=== PATIENT | male | born 1990 | race Caucasian/White ===

== ENCOUNTER 2019-05-28 20:37 | Observation (INO) | payer OTHER, SELFPAY ==
[2019-05-28 20:38] VITALS: BP 137/81; PULSE 80; RESP 16; TEMP 37.1; O2SAT 98; BMI 31.7
--- NOTE | 2019-05-28 21:03 | CT_ITS ---
HISTORY: RT GROIN LUMP AND PAIN,RLQ PAIN SINCE THURSDAY TECHNIQUE: Helically acquired images were obtained of the abdomen and pelvis following the intravenous administration of 100ML ml of Isovue 370 Iodinated contrast. 2D reformats. Oral contrast was administered. A radiation dose optimization technique was used for this scan. COMPARISON: None FINDINGS: # of images incl. paperwork: 414 LUNG BASES: Clear. CT abdomen: Minimal wedging to the lower thoracic and L1 vertebral bodies with a mild kyphosis. Trace anterior subluxation of L5 on S1 with chronic spondylolisthesis and spondylolysis at L5-S1. The gallbladder remains. Periportal edema is present. The spleen, pancreas, and adrenal glands, are normal. Hypodense area within the anterior mid right kidney statistically represents a benign cyst. No nephrolithiasis or hydronephrosis. No ureteric stones. The aorta is normal. CT pelvis: No ascites is present. The prostate gland is not enlarged. The appendix is minimally thickened at 8 mm. Series 2 image 83. Coronal series 601, image 60 There is trace surrounding induration to the fat with slight thickening of the parietal peritoneum The bladder is normal. Bowel-gas pattern is normal. CT/Abdomen/Pelvis WITH Contrast IMPRESSION: Some inguinal lymph nodes are present. The largest right inguinal lymph node, directly anterior to the right common iliac artery and vein measures 2.1 x 1.5 cm. The etiology for this adenopathy is not perceived. The origin of the appendix is normal. ADDENDUM thickened slightly to 8 mm as it sits directly anterior to the right psoas muscle behind and inferior to the cecum. There is minimal induration of the surrounding fat. There is slight thickening of the parietal peritoneum within the paracolic gutter dorsal to the appendix. This may be indicative of early/mild acute appendicitis Periportal edema. This of unknown etiology, but can be seen in healthy patients after rapid IV hydration. Individualized dose optimization techniques were used for this CT. at 1260 Reported and signed by: Yonatan Emanuel MD N.B. : The above information has been verbally conveyed by Yonatan Emanuel MD to Dr. Winnie MD, on 05/28/2019 23:33:35 (ET). Electronically Signed: Yonatan Emanuel MD at 23:28 EST Tel , Service support ,
--- NOTE | 2019-05-28 21:09 | ED.DCSUM_ITS ---
- ER Visit Summary Date of Service: 05/28/19 Chief Complaint: [Lump in right lower abdomen] History of Present Illness: The patient is a 29 M presents to the emergency department with a lump in his right lower abdomen that is had for several days. Patient describes discomfort over and a fullness to his lower abdomen. Patient yesterday also had an episode of some discomfort to his right testicle was quite severe for a short time but seems to have improved now. He denies any trauma to his testicle. He denies urinary symptoms. He also had some mild discomfort into his right back. Patient's had no dysuria. He denies any fevers or vomiting. He denies any blood in stool or black tarry stool. Concerned that he may have a hernia.] Physical Examination: [HEENT-PERRLA, EOMI. Cranial nerves II through XII grossly intact. TMs clear. Mucous membranes moist. No adenopathy. Cardiovascular-regular rate and rhythm without murmur or ectopy Lungs-clear to auscultation, chest wall stable without crepitus or subcu emphysema Abdomen-normoactive bowel sounds, soft. Patient has tenderness palpation over the right inguinal region and lower quadrant with a small 3 cm soft tissue mass noted in this area and slightly tender to palpation. It is more noticeable when patient standing. There is no discoloration to the skin. exam-patient has some mild tenderness over the right epididymis with some mild fullness noted compared to the opposite side. No inguinal hernias palpated in the inguinal canal. Patient has normal lie of both testicles and normal cremasteric reflex. Extremities-intact ?4, normal range of motion, normal pulses, atraumatic] Test Results: [] Emergency Department Course and Treatment: [] Treatment Plan: [] Disposition: [] Impression: [] This note was generated with Tripda dictation software. It may contain incorrect words, spelling, and punctuation that were not noted in review of the chart prior to signing <Ina Guzmna - Last Filed: 05/28/19 21:09> - ER Visit Summary Date of Service: 05/28/19 Test Results: BC normal. BMP unremarkable. Urinalysis and lactate normal. CT showed possible appendicitis. There is right inguinal lymphadenopathy. Emergency Department Course and Treatment: Patient was signed out to me to check labs, urine, and imaging. There was no evidence of hernia or pathology. Radiology called and was concern for early appendicitis. His labs and vitals were unremarkable. On reevaluation, he continues to have right lower quadrant pain. I advised him to remain n.p.o. I contacted Dr. Rios who will evaluate the patient. I started Zosyn while awaiting evaluation. Dr. Rios initially did not believe that his exam, imaging, and evaluation were consistent with appendicitis. The plan was going to be to discharge him on antibiotics to cover epididymitis and have him follow-up with Dr. Rios for his lymphadenopathy and with urology for possible epididymitis/orchitis. Dr. iRos reviewed the images again and decided that we would observe the patient overnight for a reevaluation in the morning. Treatment Plan: As above Disposition: Admission Impression: 1. Right lower quadrant pain, possible appendicitis This note was generated with Tripda dictation software. It may contain incorrect words, spelling, and punctuation that were not noted in review of the chart janet or to signing <Gregg Zhou - Last Filed: 05/29/19 02:08> ED Disposition <Ina Guzman - Last Filed: 05/28/19 21:09> <Gregg Zhou - Last Filed: 05/29/19 02:08> - Plan for ED Patient: Disposition: Acute Care Hospital [facility]
[2019-05-28] MEDS: 0.9% Normal Saline 1,000 ML 150 ML IV (21:20)
[2019-05-28 21:32] LABS: Absolute Lymphocyte Count 1.96 X10^3/uL (0.83-4.51); Absolute Neutrophil Count 5.8 X10^3/uL (2.0-7.7); Basophil# 0.05 X10^3/uL; Basophil% 0.6 % (0-1); Eosinophil# 0.05 X10^3/uL; Eosinophils% 0.6 % (0-5); Hematocrit 40.1 % (40-54); Hemoglobin 13.6 g/dL (13.0-16.5); Lymphocyte # 1.96 X10^3/ul (4.0); Lymphocyte % 22.7 % (19-41); Mean Corp Hgb Conc 33.9 g/dL (32-36); Mean Corpuscular Hgb 29.1 pg (27.0-32.0); Mean Corpuscular Volume 85.7 fL (80-94); Mean Platelet Vol. 9.5 fl (6.2-12.0); Monocyte# 0.79 X10^3/uL; Monocyte% 9.2 % (0-10); NRBC Flagged by Analyzer 0 % (0-5); Neutrophil # 5.76 X10^3/uL (2.7-7.7); Neutrophil % 66.7 % (47-70); Platelet Count 211 K/mm3 (150-450); RBC Distribution Width CV 12.1 % (11.6-14.6); RBC Distribution Width SD 37.6 fl (35.1-43.9); Red Blood Count 4.68 M/mm3 (4.6-6.2); White Blood Count 8.6 K/mm3 (4.4-11.0)
[2019-05-28 21:57] LABS: Anion Gap 7 (5-15); BUN 15 mg/dL (7-18); BUN/Creat Ratio 17.1 RATIO (10-20); Calcium,Total 9.1 mg/dL (8.5-10.1); Chloride 109 mmol/L (98-107); Creatinine, Serum 0.88 mg/dL (0.70-1.30); EST Glomerular Filtration Rate 108 mL/min (>60); Est Glom Filt Rate - Afr Amer 131 mL/min (>60); Estimated Creatinine Clearance 122.74 ml/min; Glucose 96 mg/dL (74-106); Potassium 3.6 mmol/L (3.5-5.1); Sodium Level 142 mmol/L (136-145)
[2019-05-28 22:03] LABS: Bacteria 0 SEEN /hpf (None Seen); Mucous, Urine 0 SEEN /hpf (<or=2+); Squamous Epithelial Cells - UA 0 SEEN /hpf (0-5); White Blood Cells 0 SEEN /hpf (0-5)
[2019-05-28 22:04] LABS: Color, Urine Yellow (Yellow); Glucose, Dipstick Normal (Normal); Ketone-Dipstick Negative (Negative); Leukocyte Esterase-Dipstick Negative /ul (Negative); Nitrite-Dipstick Negative (Negative); Occult Blood-Urine Negative /ul (Negative); Protein-Dipstick Negative (Negative); Specific Gravity, Urine 1.025 (1.002-1.030); Urine Bilirubin Dipstick Negative (Negative); Urine Clarity Sl. Cloudy (Clear); Urine Urobilinogen Normal (Normal)
[2019-05-28 22:17] LABS: Red Blood Cells-Urine 0 SEEN /hpf (0-5)
[2019-05-28 22:43] LABS: Lactic Acid 1.1 mmol/L (0.4-2.0)
[2019-05-28 23:13] VITALS: BP 129/80; PULSE 71; RESP 14; O2SAT 97
--- NOTE | 2019-05-28 23:14 | ED.RN ---
pt with increased discomfort in lower abd area, but states I don't want anything for pain. Dr Guzman aware.
[2019-05-29] VITALS (16 sets, daily range): BP systolic 112–147; BP diastolic 66–82; PULSE 53–84; RESP 14–18; TEMP 36.6–37; O2SAT 94–100; BMI 32.4
--- NOTE | 2019-05-29 00:20 | PCM.CONS.GEN ---
Problem List (1) Right lower quadrant abdominal pain Status: Acute (2) Enlarged lymph node Status: Acute Reason for Consult Date of Consultation: 05/29/19 History of Present Illness: The patient is a 29 M presents to the emergency department with a lump in his right lower abdomen that is had for several days. Patient describes discomfort over and a fullness to his lower abdomen. Patient yesterday also had an episode of some discomfort to his right testicle was quite severe for a short time but seems to have improved now. He denies any trauma to his testicle. He denies urinary symptoms. He also had some mild discomfort into his right back. Patient's had no dysuria. He denies any fevers or vomiting. He denies any blood in stool or black tarry stool. Concerned that he may have a hernia. His work-up in the emergency department included a normal white count and electrolytes. As well as a normal urinalysis. His CAT scan read as: IMPRESSION: Some inguinal lymph nodes are present. The largest right inguinal lymph node, directly anterior to the right common iliac artery and vein measures 2.1 x 1.5 cm. The etiology for this adenopathy is not perceived. The origin of the appendix is normal. ADDENDUM thickened slightly to 8 mm as it sits directly anterior to the right psoas muscle behind and inferior to the cecum. There is minimal induration of the surrounding fat. There is slight thickening of the parietal peritoneum within the paracolic gutter dorsal to the appendix. This may be indicative of early/mild acute appendicitis. He is not complaining of any peritoneal irritation. He states it feels as if he is done a lot of sit ups. 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 Past Medical History Allergies No Known Allergies Allergy (Verified 05/28/19 20:40) Home Medications: Ambulatory Orders Medication Instructions Recorded Loratadine [Claritin] 1 tablet PO DAILY PRN PRN 01/04/16 Smoking Status: Never smoker - *Family History Maternal History Items: No pertinent history Review of Systems Constitutional: Denies: Chills, Fever, Weight Change Cardiovascular: Denies: Chest Pain, Chest Pressure, Chest Tightness, Palpitations Respiratory: Denies: Cough, Hemoptysis, Shortness of breath at rest, Shortness of breath upon exertion, Wheezing Gastrointestinal: Reports: Abdominal Pain, Diarrhea. Denies: Nausea, Vomiting Genitourinary: Denies: Dysuria, Frequency, Hematuria, Urgency Musculoskeletal: Reports: Muscle pain Patient Problems: Active and Suspected Problems Right lower quadrant abdominal pain (Acute) Enlarged lymph node (Acute) - Physical Exam Vitals/I&O's: Vital Signs Temp Pulse Resp BP Pulse Ox 98.8 F 71 14 129/80 H 97 05/28/19 20:38 05/28/19 23:13 05/28/19 23:13 05/28/19 23:13 05/28/19 23:13 Oxygen Delivery Method Room Air Weight: 215 lb Body Mass Index (BMI) 31.7 General: Alert, Oriented x3 Lungs: Clear to auscultation Cardiovascular: Regular rate, Regular Rhythm, No murmurs Abdomen: Bowel Sounds Present, Soft - Has no focal tenderness in the right lower quadrant. He has no focal tenderness in the groin. The lymph node is easily palpable in the right groin area. The patient gets in and out of the bed without discomfort he can stand on his tippy toes and fall to his heels abruptly with no peritoneal irritation. He has no discomfort when he is coughing. Laboratory Results 05/28/19 21:20: WBC 8.6, RBC 4.68, Hgb 13.6, Hct 40.1, MCV 85.7, MCH 29.1, MCHC 33.9, RDW Std Deviation 37.6, RDW Coeff of Unruly 12.1, Plt Count 211, MPV 9.5, Immature Gran % (Auto) 0.200, Neut % (Auto) 66.7, Lymph % (Auto) 22.7, [place] % (Auto) 9.2, Eos % (Auto) 0.6, Baso % (Auto) 0.6, Absolute Neuts (auto) 5.8, Absolute Lymphs (auto) 1.96, Nucleated RBC % 0 05/28/19 21:20: Sodium 142, Potassium 3.6, Chloride 109 H, Carbon Dioxide 26.0, Anion Gap 7, BUN 15, Creatinine 0.88, Estim Creat Clear Calc 122.74, Est GFR (MDRD) Af Amer 131, Est GFR (MDRD) Non-Af 108, BUN/Creatinine Ratio 17.1, Glucose 96, Calcium 9.1 05/28/19 21:55: Urine Color Yellow, Urine Clarity Sl. Cloudy, Urine pH 6.0, Ur Specific [place] 1.025, Urine Protein Negative, Urine Glucose (UA) Normal, Urine Ketones Negative, Urine Occult Blood Negative, Urine Nitrite Negative, Urine Bilirubin Negative, Urine Urobilinogen Normal, Ur Leukocyte Esterase Negative, Urine RBC 0 SEEN, Urine WBC 0 SEEN, Ur Squamous Epith Cells 0 SEEN, Urine Bacteria 0 SEEN, Urine Mucus 0 SEEN 05/28/19 22:05: Lactic Acid 1.1 Current Medications Sodium Chloride () 1,000 mls @ 150 mls/hr IV .[id number] [facility] Last Admin: 05/28/19 21:20 Dose: 150 mls/hr Documented by: Assessment/Plan All Active Problems Right lower quadrant abdominal pain (Acute) Enlarged lymph node (Acute) Although the CAT scan raises a question of acute appendicitis here his physical exam is just completely out of proportion to that. Not showing any peritoneal irritation and/or specific pain in the right lower quadrant my suspicion is low. However I think it would be prudent to admit him to the hospital for observation and see how he is feeling between 6 and 8 hours from now.
[2019-05-29] MEDS: Dextrose 5%-Lactated Ringers 1,000 ML 100 ML IV (01:49)
[2019-05-29 06:44] LABS: Hematocrit 36.6 % (40-54); Hemoglobin 12.5 g/dL (13.0-16.5); Mean Corp Hgb Conc 34.2 g/dL (32-36); Mean Corpuscular Hgb 29.1 pg (27.0-32.0); Mean Corpuscular Volume 85.3 fL (80-94); Mean Platelet Vol. 9.8 fl (6.2-12.0); Platelet Count 176 K/mm3 (150-450); RBC Distribution Width CV 12.3 % (11.6-14.6); RBC Distribution Width SD 37.9 fl (35.1-43.9); Red Blood Count 4.29 M/mm3 (4.6-6.2); White Blood Count 5.2 K/mm3 (4.4-11.0)
--- NOTE | 2019-05-29 10:07 | PN.SURG_ITS ---
Patient Problems: Active and Suspected Problems Right lower quadrant abdominal pain (Acute) Enlarged lymph node (Acute) Subjective: Patient is not feeling any better today than he did yesterday. He has had some loose stools last night. Objective: Abdomen is soft he does have some most of his tenderness in the right lower quadrant. - Physical Exam Vitals/I&O's: Vital Signs Temp Pulse Resp BP Pulse Ox 97.8 F 60 18 126/72 H 98 05/29/19 06:20 05/29/19 06:20 05/29/19 06:20 05/29/19 06:20 05/29/19 06:20 Oxygen Delivery Method Room Air Weight: 219 lb 9.286 oz Body Mass Index (BMI) 32.4 Intake and Output for Last 24 Hours 05/27/19 05/28/19 05/29/19 23:59 23:59 23:59 Intake Total 662.5 / 662.5 Balance 662.5 / 662.5 Laboratory Results 05/28/19 21:20: WBC 8.6, RBC 4.68, Hgb 13.6, Hct 40.1, MCV 85.7, MCH 29.1, MCHC 33.9, RDW Std Deviation 37.6, RDW Coeff of Unruly 12.1, Plt Count 211, MPV 9.5, Immature Gran % (Auto) 0.200, Neut % (Auto) 66.7, Lymph % (Auto) 22.7, [place] % (Auto) 9.2, Eos % (Auto) 0.6, Baso % (Auto) 0.6, Absolute Neuts (auto) 5.8, Absolute Lymphs (auto) 1.96, Nucleated RBC % 0 05/28/19 21:20: Sodium 142, Potassium 3.6, Chloride 109 H, Carbon Dioxide 26.0, Anion Gap 7, BUN 15, Creatinine 0.88, Estim Creat Clear Calc 122.74, Est GFR (MDRD) Af Amer 131, Est GFR (MDRD) Non-Af 108, BUN/Creatinine Ratio 17.1, Glucose 96, Calcium 9.1 05/28/19 21:55: Urine Color Yellow, Urine Clarity Sl. Cloudy, Urine pH 6.0, Ur Specific [place] 1.025, Urine Protein Negative, Urine Glucose (UA) Normal, Urine Ketones Negative, Urine Occult Blood Negative, Urine Nitrite Negative, Urine Bilirubin Negative, Urine Urobilinogen Normal, Ur Leukocyte Esterase Negative, Urine RBC 0 SEEN, Urine WBC 0 SEEN, Ur Squamous Epith Cells 0 SEEN, Urine Ba cteria 0 SEEN, Urine Mucus 0 SEEN 05/28/19 22:05: Lactic Acid 1.1 05/29/19 06:19: WBC 5.2, RBC 4.29 L, Hgb 12.5 L, Hct 36.6 L, MCV 85.3, MCH 29.1, MCHC 34.2, RDW Std Deviation 37.9, RDW Coeff of Unruly 12.3, Plt Count 176, MPV 9.8 Current Medications Dextrose/Lactated Ringer's () 1,000 mls @ 100 mls/hr IV .Q10H BISHOP Last Admin: 05/29/19 01:49 Dose: 100 mls/hr Documented by: Piperacillin Sod/Tazobactam (Sod 4.5 gm/ Sodium Chloride) 100 mls @ 200 mls/hr IV X1 ONE Stop: 05/29/19 10:19 Sodium Chloride () 250 mls @ 15 mls/hr IV .[id number] PRN PRN Reason: Saline Flush Ondansetron HCl (Zofran) 4 mg IV Q8H PRN PRN PRN Reason: Nausea Sodium Chloride () 10 - 40 ml IV UD PRN PRN Reason: SALINE FLUSH Medical Necessity - Tobacco Use Smoking Status: Never smoker Assessment/Plan All Active Problems Right lower quadrant abdominal pain (Acute) Enlarged lymph node (Acute) Plan is to perform a laparoscopic appendectomy. Risk benefits to the procedure were reviewed in great detail with he and his and they are willing to proceed.
--- NOTE | 2019-05-29 10:10 | NURSING ---
skin prep completed to patients abdomen and groins. clean gown and linens placed on. Pt signed consent. pt being taken to OR at this time via bed, his is with him at the bedside. report called to Lisa in OR.
--- NOTE | 2019-05-29 10:30 | APP_PTH ---
PATIENT: MARY PALACIOS LOC: [facility] U#:[id number] AGE/SX: 29/M ROOM: [facility] RE05/29/[address]: Dr. Gregg Rios MD : 1990 BED: 1 DIS: 05/30/2019 SPEC #: [id number] RECD: 05/30/19 07:45 STATUS: JULIUS REAlec #: [id number] MIMI: 05/29/19 10:[address]: Gregg Rios DEPT: SURGICAL PATHOLOGY RECD BY: Ines Gonsales ENTERED: 05/30/19 09:57 SP TYPE: APPENDIX OTHR DR: Dr. Destiney Javier MD Tissues: Appendix, NOS Procedures: Surgery Specimen Level III HEADER OPERATION: Laparoscopic, appendectomy PRE-OP DIAGNOSIS: Right lower quadrant pain, acute appendicitis TISSUE SUBMITTED: Appendix MICROSCOPIC DIAGNOSIS Appendix, appendectomy: Early acute appendicitis. OG:oksana 11/19/19 MICROSCOPIC DESCRIPTION Slides are reviewed. GROSS DESCRIPTION Received is one container labeled with the patient's name and designated appendix. The specimen consists of a J-shaped appendix measuring 9 cm in length and up to 0.8 cm in diameter. The attached periappendiceal adipose tissue measures up to 2.5 cm in width. The serosa is congested. No obvious perforation is identified. The lumen does not contain any fecalith. The entire appendix is submitted in four cassettes. Cassette 1 contains the tip and proximal portion. / OG:oksana 05/30/19 TC:2 CPT: 70427
--- NOTE | 2019-05-29 10:46 | PCM.OPRPT ---
Problem List (1) Right lower quadrant abdominal pain Status: Acute (2) Acute appendicitis Status: Acute Qualifiers: Acute appendicitis type: with localized peritonitis Appendicitis gangrene presence: without gangrene Appendicitis perforation presence: without perforation Appendicitis abscess presence: without abscess Qualified Code(s): K35.30 - Acute appendicitis with localized peritonitis, without perforation or gangrene Report of Operation Date of Procedure: 05/29/19 Pre-Operative Diagnosis: Right lower quadrant abdominal pain. Acute appendicitis Post-Operative Diagnosis: Same Surgery/Procedure Performed:: Laparoscopic appendectomy Type of Anesthesia:: General Anesthesiologist: Rakesh Weeks Specimen's removed: Appendix Estimated Blood Loss (mL): < 25 cc Fluids Replaced: 1 l lr Description of Procedure: Patient was brought into the operating room. Placed in the supine position. Under excellent general endotracheal ovation the abdomen was sterilely prepped and draped in usual fashion. Local was injected infra umbilically. Dissection was carried down to the fascia. Fascia was grasped with a [place]. Varies needle was placed inside the abdomen. Abdomen was insufflated to 15 torr. A 10/12 trocar was placed. Suprapubic #5 trochars placed in the left lower quadrant #5 trocar was placed over these under direct visualization without injury to underlying structures patient was noted to have a thickened appendix in the middle of the appendix with fat creeping around I came down on the mesoappendix with the Enseal to the base the appendix and transected the base of the appendix with a 45 linear cutter. Placed a specimen specimen bag delivered through the umbilical port without difficulty. I used touch cautery on the appendiceal base for good hemostasis. I inspected the pelvis no fluid was identified I looked at the gallbladder it appeared to be normal as well. I placed Tony in the base of the mesoappendix and base of the appendix area. I had good hemostasis. Around the small bowel did not identify Meckel's diverticulum. Trochars were removed under direct visualization good hemostasis was noted. Fascia the umbilical port was closed with a [id number] stitch of 0 Vicryl skin incisions were closed with some particular stitches of 4-0 Monocryl Steri-Strips applied sterile dressings were applied and the patient tolerated the procedure well. - Admit VTE Documentation VTE Present on Admission: No VTE Mechan Device Prophylaxis: SCD's VTE Pharm Prophylaxis ordered?: No Reason prophylaxis not ordered:: Treatment Not Indicated
[2019-05-29] MEDS: Bupivacaine Mpf 0.5% 30 ML VIAL (11:14)
[2019-05-29] MEDS: Lactated Ringers 1,000 ML 100 ML IV ×2 (11:31→19:18)
[2019-05-29] MEDS: Ibuprofen 400 MG Tablet 800 MG PO ×2 (13:28→21:03)
[2019-05-29] MEDS: oxyCODONE 5 MG Tablet 10 MG PO (22:48)
[2019-05-30 00:25] VITALS: BP 118/70; PULSE 76; RESP 16; TEMP 36.9; O2SAT 94
[2019-05-30 04:25] VITALS: BP 116/64; PULSE 63; RESP 18; TEMP 36.8; O2SAT 96
[2019-05-30] MEDS: Ibuprofen 400 MG Tablet 800 MG PO (05:35)
[2019-05-30] MEDS: Lactated Ringers 1,000 ML 100 ML IV (05:35)
[2019-05-30 08:45] VITALS: BP 107/69; PULSE 60; RESP 16; TEMP 36.6; O2SAT 100
[2019-05-30] MEDS: oxyCODONE 5 MG Tablet 10 MG PO (08:55)
--- NOTE | 2019-05-30 09:47 | DS.PCM_ITS ---
Discharge Date and Diagnosis - Problem List Patient Problems: Active and Suspected Problems Right lower quadrant abdominal pain (Acute) Enlarged lymph node (Acute) Acute appendicitis (Acute) Date of Admission: 05/28/19 Date of Discharge: 05/30/19 - Primary Discharge Diagnosis Active and Suspected Problems Right lower quadrant abdominal pain (Acute) Enlarged lymph node (Acute) Acute appendicitis (Acute) Hospital Course and Treatment Operations: appendectomy Procedures: None Summary of Care Provided: The patient is a 29 year old M who presented with right lower quadrant pain x several days. CT scan of the ab/pel demonstrated early acute appendicitis. Dr. Rios performed a laparoscopic appendectomy on 05/29/19. Patient tolerated the procedure well. Upon discharge, patient is tolerating a regular diet. He denies nausea, vomiting. He is urinating well. He notes minimal amount of abdominal discomfort. Patient Problems: Active and Suspected Problems Right lower quadrant abdominal pain (Acute) Enlarged lymph node (Acute) Acute appendicitis (Acute) - Physical Exam Vitals/I&O's: Vital Signs Temp Pulse Resp BP Pulse Ox 97.9 F 60 16 107/69 100 05/30/19 08:45 05/30/19 08:45 05/30/19 08:45 05/30/19 08:45 05/30/19 08:45 Oxygen Flow Rate (L/min) 2 Oxygen Delivery Method Room Air Weight: 219 lb 9.286 oz Body Mass Index (BMI) 32.4 Intake and Output for Last 24 Hours 05/28/19 05/29/19 05/30/19 23:59 23:59 23:59 Intake Total 3720.83 / 3720.83 1018.33 / 1018.33 Balance 3720.83 / 3720.83 1018.33 / 1018.33 General: Alert, Oriented x3, Cooperative Abdomen: Bowel Sounds Present, Soft, Distended - slightly, - - Incisions c/d/i. No erythema or infection noted. Current Medications Hydromorphone HCl (Dilaudid Inj) 1 - 2 mg IV Q2H PRN PRN PRN Reason: Pain Score 6-10/10 Sodium Chloride () 250 mls @ 15 mls/hr IV .[id number] PRN PRN Reason: Saline Flush Lactated Ringer's () 1,000 mls @ 100 mls/hr IV .Q10H BISHOP Last Admin: 05/30/19 05:35 Dose: 100 mls/hr Documented by: Ibuprofen (Motrin) 800 mg PO Q8 BISHOP Last Admin: 05/30/19 05:35 Dose: 800 mg Documented by: Ondansetron HCl (Zofran) 4 mg IV Q8H PRN PRN PRN Reason: Nausea Oxycodone HCl (Oxyir) 10 mg PO Q4H PRN PRN PRN Reason: Pain Score 6-10/10 Last Admin: 05/30/19 08:55 Dose: 10 mg Documented by: Sodium Chloride () 10 - 40 ml IV UD PRN PRN Reason: SALINE FLUSH Home Medications: Medications to take at Discharge Loratadine [Claritin] 1 tablet PO DAILY PRN PRN 01/04/16 Oxycodone [Oxyir] 5 mg PO Q6H PRN PRN 3 Days #8 tablet 05/30/19 Following Prescrptions Were Given to Patient: Oxycodone [Oxyir] 5 mg PO Q6H PRN PRN 3 Days #8 tablet PRN Reason: Pain Score 6-10/10 Transmission Status: Sent to [facility] Primary Care Physician: Destiney Javier MD [Primary Care Provider] - Disposition: Home Minutes spent on discharge:: 20 Patient Condition:: Stable Medical Necessity - Tobacco Use Smoking Status: Never smoker Meaningful Use Info Meaningful Use Diagnoses (Choose all that apply): None applicable Code Visit Inpatient E&M: 01020 Disch Hosp - No charge
--- NOTE | 2019-05-30 09:56 | DCINST_ITS ---
Discharge Diet: Light diet - advance as tolerated Discharge Activity: May Not Drive - for 3-5 days or while taking narcotic pain meds. May shower in (days): 1 Call your doctor if your incision/area has: Continuous Slow Oozing, Sudden Increased Bleeding, Increased Pain/ Swelling, Increased Redness, Foul Smelling Discharge Call your doctor if you observe: Fever of 101 or Higher Suture Line Care: Avoid Pulling/Pushing, Avoid Pinching/Bending Cleanse incision/area with: Soap & Water Additional Dressing/Incision Instructions:: Keep dressing clean and dry. Change or remove dressing in 2 days. Leave steri strips for 1 week. May protect with a gauze bandaid. Medications to take at Discharge Loratadine [Claritin] 1 tablet PO DAILY PRN PRN 01/04/16 Oxycodone [Oxyir] 5 mg PO Q6H PRN PRN 3 Days #8 tablet 05/30/19 Allergies/Adverse Reactions: Allergies No Known Allergies Allergy (Verified 05/28/19 20:40) The following prescriptions were given: Oxycodone [Oxyir] 5 mg PO Q6H PRN PRN 3 Days #8 tablet PRN Reason: Pain Score 6-10/10 Transmission Status: Sent to [facility] Primary Care Physician: Destiney Javier MD [Primary Care Provider] - Test Results: Test results from this visit will be discussed in further detail at your follow- up appointment, if applicable. Please Follow Up With: Herminia Mandujano PA-C - [phone] When: 7-10 days Proposed Discharge Date: 05/30/19
--- NOTE | 2019-05-30 10:24 | PHA.DC.MC ---
Pharmacy Service has performed discharge medication reconciliation and counseling for this patient. 1. OXYCODONE 5MG PO Q6H PRN PAIN 6-10 X 3 DAYS The patient's discharge medication list was reviewed for discrepancies and discrepancies were resolved. Home Medications Loratadine [Claritin] 1 tablet PO DAILY PRN PRN 01/04/16 Oxycodone [Oxyir] 5 mg PO Q6H PRN PRN 3 Days #8 tab 05/30/19 The patient was counseled on the following discharge medications and changes in medications for homegoing were reviewed. The Reason for Use, instructions for use, and potential side effects were reviewed for all new medications. The patient's questions regarding all of their medications were answered. The patient was able to verbally demonstrate an understanding of their discharge medications.
== END 2019-05-30 09:57 | disposition home or self-care (01) ==
LOC: ED 21:17 → PCU 05-29 00:35
PROVIDERS: Admitting Provider Surgery; Emergency Provider Emergency Medicine; Family Provider Family Medicine; PCP Family Medicine; Visit Provider Surgery
PROC: 0DTJ4ZZ Resection of Appendix, Percutaneous Endoscopic Approach (ICD-10-PCS; CPT 44970; principal; 2019-05-29 10:30)
DX: K35.80 Unspecified acute appendicitis (principal); R59.9 Enlarged lymph nodes, unspecified
CPT/HCPCS: 00840; 44970; 74177; 80048; 81001; 83605; 85025; 85027; 88304; 96361; 96365; 97802; 99218; 99251; 99285; J7030; J7120; Q9967; A4216; C1760; G0378; G0463; J2405

== ENCOUNTER → 2019-06-13 16:09 | Outpatient (CLI) | payer OTHER, SELFPAY ==
[2019-05-29 01:08] VITALS: BMI 32.4
--- NOTE | 2019-06-13 16:10 | US_ITS ---
STUDY: SCROTUM ULTRASOUND REASON FOR EXAM: Male, 29 years old. Testicular pain TECHNIQUE: Ultrasound evaluation of the scrotum was performed with color Doppler and static kapoor-scale imaging. COMPARISON: None. FINDINGS: RIGHT TESTICLE INTRATESTICULAR: There is a normal size of the right testicle. The right testicle measures 4.9 x 3.7 x 2.5 cm. There is a homogenous echotexture. There is normal arterial and normal venous vascularity. There is no demonstrated right testicular mass or cyst. EXTRATESTICULAR: The epididymis is normal in size. The epididymis head measures 1.1 cm. There is normal vascularity of the epididymis. There is no demonstrated epididymal cystic structure. There is small complex hydrocele with septations. There is no demonstrated varicocele. There is no demonstrated extratesticular mass or cyst. LEFT TESTICLE INTRATESTICULAR: There is a normal size of the left testicle. The left testicle measures 4.6 x 3.4 x 2.4 cm. There is a homogenous echotexture. There is normal arterial and normal venous vascularity. There is no demonstrated left testicular mass or cyst. EXTRATESTICULAR: The epididymis is normal in size. The epididymis head measures 1.1 cm. There is normal vascularity of the epididymis. There is a well-defined cystic structure within the epididymis, without internal echoes, consistent with an epididymal cyst. There is a small hydrocele. There is no demonstrated varicocele. There is no demonstrated extratesticular mass or cyst. US/Testicular with Arterial Flow IMPRESSION: Bilateral hydroceles, small. Right-sided hydrocele has thin septations. Otherwise, unremarkable exam Electronically Signed: Henry Archibald DO at 17:10 EST Tel , Service support ,
== END ==
PROVIDERS: Family Provider Family Medicine; PCP Family Medicine; Referring Provider Physician Assistant; Visit Provider Physician Assistant
DX: N50.811 Right testicular pain (principal)
CPT/HCPCS: 76870; 93976

== ENCOUNTER 2019-06-24 20:15 | Emergency (ER) | payer OTHER, SELFPAY ==
[2019-05-29 01:08] VITALS: BMI 32.4
[2019-06-24 20:16] VITALS: BP 144/88; PULSE 74; RESP 15; TEMP 37; O2SAT 97; BMI 30.1
--- NOTE | 2019-06-24 20:26 | EKG12_ITS ---
Test Reason : DYSRHYTHMIA Blood Pressure : / mmHG Vent. Rate : 062 BPM Atrial Rate : 062 BPM P-R Int : 162 ms QRS Dur : 098 ms QT Int : 410 ms P-R-T Axes : 018 059 040 degrees QTc Int : 416 ms Normal sinus rhythm Normal ECG Confirmed by SERJIO CEDILLO ([id number]), commercial production editor TASHI TORRES ([id number]) on 06/29/2019 1:04:02 PM Referred By: Confirmed By:SERJIO CEDILLO
--- NOTE | 2019-06-24 20:26 | CT_ITS ---
HISTORY: SOB/epigastric pain. Appendectomy 4 weeks ago. TECHNIQUE: Helically acquired images were obtained of the abdomen and pelvis following the intravenous administration of 100 ML of Isovue-370 intravenous contrast Iodinated contrast. 2D reformats. Gastrografin oral contrast was administered. A radiation dose optimization technique was used for this scan. COMPARISON: CT scan of the abdomen and pelvis from May 28, 2019 FINDINGS: # of images incl. paperwork: 408 LUNG BASES: Clear. CT abdomen: T11 and T12 and to a lesser degree L1 demonstrate some mild wedging at the apex of a thoracolumbar kyphosis. This disease was present on the study from less than one month earlier. 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 Liver, spleen, pancreas, and adrenal glands, are normal. The kidneys are normal. The aorta is normal. CT pelvis: No ascites is present. The prostate gland is not enlarged. The appendix has been resected. There is no operative bed abscess inflammation hematoma or seroma.. There is some lymphadenopathy within the right lower quadrant mesentery. The size and number of these lymph nodes is similar to the previous study The bladder is normal. Bowel-gas pattern is normal. CT/Abdomen/Pelvis WITH Contrast IMPRESSION: No acute intra-abdominal or pelvic disease. Individualized dose optimization techniques were used for this CT. at 0136 Reported and signed by: Yonatan Emanuel MD Electronically Signed: Yonatan Emanuel MD at 22:34 EST Tel , Service support ,
--- NOTE | 2019-06-24 20:26 | CT_ITS ---
HISTORY: SOB/epigastric pain. Appendectomy 4 weeks ago. TECHNIQUE: Helically acquired images were obtained of the chest following the intravenous administration of 100 ML of Isovue-370 Iodinated contrast. as per pulmonary angiogram protocol with 2D MIP reconstructions. A radiation dose optimization technique was used for this scan. COMPARISON: CT scan of the abdomen and pelvis from the same acquisition as well as a previous CT scan of the abdomen and pelvis from May 28, 2019. No previous CT scan of the chest FINDINGS: # of images incl. paperwork: 1222 Not all of the lungs are imaged. The CT scan evidence and the diaphragm is beginning to be imaged, but the posterior costophrenic sulci of the lungs are not completely imaged. Therefore if pathology persists in the posterior costophrenic sulci within the lower lungs, it is not imaged on this CT scan of the chest. From review of the CT scan of the abdomen and pelvis, there is areas can be evaluated and are clear. Lungs are clear .. No effusions. Within the thoracic spinebony alignment is normal. Vertebral body height is normal. Facets are well aligned. No rib lesions are perceived. Heart is not enlarged. Thoracic aorta is normal. No aneurysms, stenoses, dissections, nor occlusions. No axillary or mediastinal adenopathy. No pulmonary emboli. Visualized portions of the upper abdomen are without identified acute pathology. CT/CTA Chest W/WO Contrast IMPRESSION: No pulmonary embolism, aortic aneurysm, or aortic dissection. Individualized dose optimization techniques were used for this CT. at 2230 Reported and signed by: Yonatan Emanuel MD Electronically Signed: Yonatan Emanuel MD at 22:29 EST Tel , Service support ,
[2019-06-24] MEDS: 0.9% Normal Saline 1,000 ML 1000 ML IV (20:38)
[2019-06-24 20:49] LABS: Bacteria 0 SEEN /hpf (None Seen); Mucous, Urine 0 SEEN /hpf (<or=2+); Red Blood Cells-Urine 0 SEEN /hpf (0-5); Squamous Epithelial Cells - UA 0 SEEN /hpf (0-5); White Blood Cells 0 SEEN /hpf (0-5)
[2019-06-24 20:54] LABS: Color, Urine Yellow (Yellow); Glucose, Dipstick Normal (Normal); Ketone-Dipstick Negative (Negative); Leukocyte Esterase-Dipstick Negative /ul (Negative); Nitrite-Dipstick Negative (Negative); Occult Blood-Urine Negative /ul (Negative); Protein-Dipstick Negative (Negative); Urine Bilirubin Dipstick Negative (Negative); Urine Clarity Sl. Cloudy (Clear); Urine Urobilinogen Normal (Normal)
[2019-06-24 20:55] LABS: Absolute Lymphocyte Count 1.82 X10^3/uL (0.83-4.51); Absolute Neutrophil Count 3.2 X10^3/uL (2.0-7.7); Basophil# 0.03 X10^3/uL; Basophil% 0.5 % (0-1); Eosinophil# 0.22 X10^3/uL; Eosinophils% 3.7 % (0-5); Hematocrit 39.7 % (40-54); Hemoglobin 13.7 g/dL (13.0-16.5); Lymphocyte # 1.82 X10^3/ul (4.0); Mean Corp Hgb Conc 34.5 g/dL (32-36); Mean Corpuscular Hgb 28.8 pg (27.0-32.0); Mean Corpuscular Volume 83.6 fL (80-94); Mean Platelet Vol. 9.8 fl (6.2-12.0); Monocyte# 0.58 X10^3/uL; Monocyte% 9.9 % (0-10); NRBC Flagged by Analyzer 0 % (0-5); Neutrophil # 3.21 X10^3/uL (2.7-7.7); Neutrophil % 54.7 % (47-70); Platelet Count 194 K/mm3 (150-450); RBC Distribution Width SD 36.5 fl (35.1-43.9); Red Blood Count 4.75 M/mm3 (4.6-6.2); White Blood Count 5.9 K/mm3 (4.4-11.0)
--- NOTE | 2019-06-24 21:01 | ED.VISSUMM ---
- ER Visit Summary Date of Service: 06/24/19 Chief Complaint: Abdominal pain History of Present Illness: The patient is a 29 M presenting with abdominal pain. Patient states he had his appendix removed approximately [address] Rios. He states that he has been having pain since the appendectomy, he states it was starting to get better and over the past 1.5 weeks it has been progressively worsening. He has had diffuse pain with distention. He was seen by Dr. Jha yesterday who ordered a CT scan as an outpatient which has not been done yet. He started him on Carafate. He also complains of intermittent lightheadedness. He has had no syncope. He states that when his abdomen was distended he also felt short of breath. This has improved. Denies chest pain. Denies fever. He is also currently being treated for epididymitis with Bactrim. He states he has no current testicular pain. He denies nausea, vomiting, diarrhea, constipation. Denies blood in his stool. Denies urinary complaints. Denies other complaints. Physical Examination: Vitals are stable. Patient is afebrile. Alert no acute distress. HEENT exam is unremarkable. Neck is supple. Lungs are clear and equal bilaterally. Heart is regular rate and rhythm. Abdomen is soft mild diffuse tenderness with no guarding or rebound. No distention. Incisions clean dry and intact Extremities are unremarkable. Skin is warm and dry. No focal neurologic deficit. Remainder of exam is unremarkable. Emergency Department Course and Treatment: EKG is sinus rhythm rate of 62 with no acute ischemic changes. CBC, chemistries unremarkable. Liver lipase are normal. Urinalysis unremarkable. Troponin is negative. CT abdomen pelvis shows no acute process. CTA chest shows no acute process. Repeat troponin is negative. Discussed with Dr. Samuels who reviewed the CT abdomen. She feels that he does have increased amount of stool. Recommends mag citrate for home. He will follow-up in the office. Advised return to the ED for worsening complaints. Disposition: Discharge home Impression: Abdominal pain, constipation, dizziness This note was generated with [employer] dictation software. It may contain incorrect words, spelling, and punctuation that were not noted in review of the chart prior to signing ED Disposition - Plan for ED Patient: Instructions: ABDOMINAL PAIN, Unkown Cause, (Male) Referrals: Henry Jha MD [STAFF PHYSICIAN] - Destiney Javier MD [Primary Care Provider] - Gregg Rios MD [STAFF PHYSICIAN] -
[2019-06-24 21:16] LABS: ALB/GLOB Ratio 1.3 RATIO (0.9-2.4); AST(SGOT) 16 U/L (15-37); Alanine Aminotransfer ALT/SGPT 19 U/L (16-61); Albumin, Serum 4.4 g/dL (3.2-5.0); Alkaline Phosphatase 71 U/L (45-117); Anion Gap 6 (5-15); BUN 19 mg/dL (7-18); Chloride 108 mmol/L (98-107); Creatinine, Serum 1.12 mg/dL (0.70-1.30); EST Glomerular Filtration Rate 82 mL/min (>60); Est Glom Filt Rate - Afr Amer 99 mL/min (>60); Estimated Creatinine Clearance 102.72 ml/min; Globulin 3.3 g/dL (2.2-4.2); Glucose 88 mg/dL (74-106); Lipase 114 U/L (73-393); Protein, Total 7.7 g/dL (6.4-8.2); Sodium Level 139 mmol/L (136-145)
[2019-06-24 23:22] VITALS: BP 127/79; PULSE 62; RESP 14; O2SAT 98
--- NOTE | 2019-06-25 00:03 | ED.DEP ---
ED Disposition - Plan for ED Patient: Instructions: ABDOMINAL PAIN, Unkown Cause, (Male) Referrals: Destiney Javier MD [Primary Care Provider] - Henry Jha MD [STAFF PHYSICIAN] - Gregg Rios MD [STAFF PHYSICIAN] -
[2019-06-25] MEDS: Magnesium Citrate 300 ML PO (00:13)
[2019-06-25 00:29] VITALS: BP 127/79; PULSE 62; RESP 16; O2SAT 100
== END 2019-06-25 00:30 | disposition home or self-care (01) ==
LOC: ED 20:35
PROVIDERS: Emergency Provider Emergency Medicine; Family Provider Family Medicine; PCP Family Medicine
DX: R10.9 Unspecified abdominal pain (principal); K59.00 Constipation, unspecified; R42 Dizziness and giddiness; N45.1 Epididymitis; R06.02 Shortness of breath; Z90.49 Acquired absence of other specified parts of digestive tract
CPT/HCPCS: 71275; 74177; 80053; 81001; 83690; 84484; 85025; 93005; 96360; 96361; 99284; J7030; Q9967; A4216

== ENCOUNTER 2020-09-06 11:08 | Outpatient (RCR) | payer OTHER, SELFPAY ==
[2019-06-28 10:18] VITALS: BMI 30.1
== END 2020-09-06 23:59 ==
LOC: IMMUN 11:08
PROVIDERS: PCP Nurse Practitioner Family; Visit Provider Family Medicine
DX: Z23 Encounter for immunization (principal)
CPT/HCPCS: 0011A; 0012A

== ENCOUNTER 2023-10-27 14:41 | Outpatient (RCR) | payer OTHER, SELFPAY ==
--- NOTE | 2023-10-27 15:50 | HP.PTEVAL_ITS ---
Patient's Visit Information Visit Information Visit Information: MARY PALACIOS is a 33 year old M referred to Physical Therapy by KIN Sevilla with a diagnosis of dizzyness. Date of Evaluation: 10/27/23 Physical Therapist: Johnson Godwin, MARYT, OCS, CSCS Visit Plan Frequency: 1x/Week Duration: 4-6 Weeks Plan: 1x/week x 4-6 weeks for adaptation progression and MSQ as needed.(doing head turns x 10 and VOR H x 60 sec 6x/day for IE HEP. Subjective Subjective: Suspect vertigo. has been dizzy/lightheaded since a car ride a couple weeds ago. Has always gotten motion sick, was passenger and sat in back and felt nauseous. Symptoms started then and now looking up or down quick he will get dizzy but no spinning and does not lose balance but feels faintly dizzy/lightheaded. 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 Driving is not bad. It can linger for a little bit. Looking at phone makes him worse. Gets it everyday that he moves head or looks at screen alot. Working outside is not a problem. 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 Physically notlimited. sleep is fine. never had this problem before but was motion sick or possibly dehydrated. PEREZ from stimulus of reading and head movement. Objective Objective: VOR walking is symptomatic, foam stance ec is challenging but able. Walks normal and I with good balance, trasnfers I, Full UE adn cervical AROM, slightly knoxious moving head. - B hallpike boom Oculaomotor: unremarkable except VOR is 30 sec H 3-4/10 for 30 sec and DVA is 7 lines worse then SVA. - skew eye deviation - ocular tilt - head thrust no nystagmus with gaze or head shake. pursuit and saccades are [id number] with minor symptoms. VOR is good quality but stimulating. Balance/Special Test Scores Functional Gait Assessment Score: 30 % Disability: 0 CATSIB Score (Max score 120 seconds): 120 Dizziness Score: 18 Goals Goal 1:: dizzy and nausea 85% better Goal Time Frame: 4-6 Weeks Goal 2:: Pt tolerate workday without increased symptoms Goal Time Frame: 4-6 Weeks Goal 3:: Work on phone without limitations due to symptoms Goal Time Frame: 4-6 Weeks Goal 4:: I management of symptoms Goal Time Frame: 4-6 Weeks Goal 5:: 8 or less DHI Goal Time Frame: 4-6 Weeks Rehabilitation Potential Physical Therapy Diagnosis: nausea and dizzy with head movement and focus with eyes. Rehabilitation Potential: Fair Anticipated Interventions Patient/Client Instruction: Educate patient on: Condition For the Purpose of:: To decrease pain, To increase ROM, To improve nutrient delivery to tissue and To increase tolerance to activity/condition/position Comment: adaptation and habituation ex progression For the Purpose of:: To improve muscle performance and motor function, To increase tolerance to activity/condition/position and To improve ability of physical actions for home/community/work/leisure Text: Thank you for the opportunity to evaluate your patient. For Medicare and Medicare HMO plans, please review the plan of care and approve it. It will need to be FAXED BACK to us at [phone] for Medicare purposes. For Medicare only, by signing this I certify the plan of care. Please let me know if there are questions or concerns regarding this plan of care. Physician Signature: Date:
--- NOTE | 2024-01-04 09:10 | HP.PT.NRP ---
Patient Information Patient Information: MARY PALACIOS was seen in my office for initial evaluation on 10/27/23. The following Plan of Care was established for this patient: POC Established Initial Frequency: 1x/Week Initial Duration: 4-6 Weeks Anticipated Interventions Patient/Client Instruction: Educate patient on: Condition For the Purpose of:: To decrease pain, To increase ROM, To improve nutrient delivery to tissue and To increase tolerance to activity/condition/position For the Purpose of:: To improve muscle performance and motor function, To increase tolerance to activity/condition/position and To improve ability of physical actions for home/community/work/leisure Last Seen Last Seen: This patient was last seen in our office 10/27/23. Pertinent comments regarding their Physical therapy will appear below: Pt seen for IE and POC established. Cancelled next two visits stating he would reschedule but did not. At this point, it has been over 2 months and I will discontinue from my care At this point I will be discontinuing this patient from physical therapy. I would be happy to see this patient again in the future if found appropriate by the physician. Thank you! Johnson Godwin, DPT, OCS, CSCS Balance/Gait/Functional tests Balance/Special Test Scores Functional Gait Assessment Score: 30 % Disability: 0 CATSIB Score (Max score 120 seconds): 120 Dizziness Score: 18
== END 2023-10-27 19:00 | disposition home or self-care (01) ==
LOC: PT 14:41
PROVIDERS: PCP Nurse Practitioner Family; Referring Provider Nurse Practitioner Family; Visit Provider Nurse Practitioner Family
DX: R42 Dizziness and giddiness (principal); I95.1 Orthostatic hypotension; R51.9 Headache, unspecified; H53.143 Visual discomfort, bilateral
CPT/HCPCS: 97161